=== PATIENT | female | born 1970 | race Caucasian/White ===

== ENCOUNTER 2021-06-01 17:42 | Emergency (ER) | payer MEDICAID ==
[~2021-06-01] VITALS: Ht 165.1 cm; Wt 45.4 kg
[~2021-06-01 17:42] MED LIST: ATIVAN1 MG PO; INVEGA3 MG PO; PAXIL10 MG PO
[2021-06-01] MEDS ORDERED: OLANZAPINE10 M1 PO (18:09)
[2021-06-01] MEDS ORDERED: DOXEPIN HC10 MG/1 ML PO (18:09)
[2021-06-01 19:12] LABS: ABSOLUTE BASOPHILS 0.1 thou/uL (0.0-0.2); ABSOLUTE EOSINOPHILS 0.2 thou/uL (0.0-0.7); ABSOLUTE LYMPHOCYTES 3.2 thou/uL (0.8-5.3); ABSOLUTE MONOCYTES 0.5 thou/uL (0.0-1.2); ABSOLUTE NEUTROPHILS 7.5 thou/uL (1.6-8.1); EOSINOPHILS 1.7 %; HEMOGLOBIN 14.1 gm/dL (12.0-15.0); LYMPHOCYTES 27.9 %; MCH 34.3 pg (26.0-34.0); MCHC 33.6 g/dL (28.0-37.0); MONOCYTES 4.7 %; MPV 8.2 fl. (7.2-11.1); NUCLEATED RBCS 0 /100WBC; PLATELET COUNT* 309 thou/uL (150-400); POLYS 64.7 %; RBC 4.12 mil/uL (4.20-5.00); RDW-CV 15.3 % (10.5-14.5); WBC 11.6 thou/uL (4.0-11.0)
[2021-06-01 19:28] LABS: SALICYLATE 5.8 mg/dL (2.8-20.0)
[2021-06-01 19:32] LABS: ACETAMINOPHEN < 2 ug/mL (10-30); ALCOHOL < 10 mg/dL (<10)
[2021-06-01 19:41] LABS: CALCIUM 8.9 mg/dL (8.5-10.1); CREATININE 0.8 mg/dL (0.6-1.3); POTASSIUM 3.9 mmol/L (3.5-5.1)
[2021-06-01 19:50] LABS: URINE BILIRUBIN 1+ (Negative); URINE BLOOD NEGATIVE (Negative); URINE CLARITY CLEAR; URINE COLOR DARK YELLOW; URINE GLUCOSE-RANDOM NEGATIVE (Negative); URINE KETONES NEGATIVE (Negative); URINE LEUKOCYTES-REFLEX NEGATIVE (Negative); URINE NITRITE-REFLEX NEGATIVE (Negative); URINE PROTEIN NEGATIVE (Negative); URINE SPECIFIC GRAVITY >= 1.030 (1.005-1.030)
[2021-06-01 19:51] LABS: ALBUMIN 3.7 g/dL (3.4-5.0); TOTAL BILIRUBIN 0.3 mg/dL (<0.1-1.0); TOTAL PROTEIN 7.5 g/dL (6.4-8.2)
[2021-06-01 19:52] LABS: ICTOTEST (BILI CONFIRMATORY) Negative (Negative)
[2021-06-01 19:57] LABS: AMP/METHAMP Negative (Negative); BARBITURATES Negative (Negative); BENZODIAZEPINES Negative (Negative); COCAINE Negative (Negative); METHADONE Negative (Negative); OPIATES Negative (Negative); PCP Negative (Negative); THC Negative (Negative)
[2021-06-01 21:50] VITALS: BP 116/49
== END 2021-06-01 21:50 | disposition home or self-care (01) ==
LOC: M.ERS 17:42
PROVIDERS: Family Medicine
DX: F91.9 Conduct disorder, unspecified (principal); Z20.822 Contact with and (suspected) exposure to COVID-19; F32.9 Major depressive disorder, single episode, unspecified; F41.9 Anxiety disorder, unspecified; Z79.899 Other long term (current) drug therapy